=== PATIENT | male | born 1945 | race Caucasian/White ===

== ENCOUNTER 2020-01-09 09:45 | Outpatient (CLI) | payer OTHER | END 2020-01-09 09:53 | disposition home or self-care (01) | LOC: NUCLEAR 09:45 | PROVIDERS: ATTEND Internal Medicine Cardiovascular Disease | DX: G45.8 Other transient cerebral ischemic attacks and related syndromes (principal) ==

== ENCOUNTER 2023-06-02 07:56 | Outpatient (CLI) | payer OTHER | END 2023-06-02 08:01 | disposition home or self-care (01) | LOC: NUCLEAR 07:56 | PROVIDERS: ATTEND Internal Medicine Cardiovascular Disease | DX: G45.9 Transient cerebral ischemic attack, unspecified (principal); I25.10 Atherosclerotic heart disease of native coronary artery without angina pectoris ==

== ENCOUNTER 2025-05-29 07:08 | Outpatient (CLI) | payer OTHER | END 2025-05-29 07:09 | disposition home or self-care (01) | LOC: NUCLEAR 07:08 | PROVIDERS: ATTEND Internal Medicine | DX: I42.1 Obstructive hypertrophic cardiomyopathy (principal) | CPT/HCPCS: 78452; 93017; A9500 ==